=== PATIENT | male | born 1995 | race Caucasian/White ===

== ENCOUNTER 2025-02-27 00:22 | Emergency (ER) | payer OTHER ==
[~2025-02-27] VITALS: Ht 182.9 cm; Wt 81.6 kg
[2025-02-27 00:23] VITALS: TEMP 97.2
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
[2025-02-27 03:28] VITALS: BP 117/84; PULSE 59; RESP 18; O2SAT 100
--- NOTE | 2025-02-27 03:29 | NUR ---
RIGHT UPPER LIP LACERATION CLEANED WITH NORMAL SALINE, DRIED, DERMABOND APPLIED WITH ONE STERISTRIP, PATIENT TOLERATED WELL.
[2025-02-27] MEDS ORDERED: DICL500C PO (03:30)
[2025-02-27] MEDS: OCTYL 2-CYANOACRYLATE 1 EACH TP ONE (03:36)
== END 2025-02-27 03:56 ==
LOC: EDH 00:22 → EEVIPCON 00:22 → EDH 03:56
DX: S01.511A Laceration without foreign body of lip, initial encounter (principal); Y04.0XXA Assault by unarmed brawl or fight, initial encounter; Y93.89 Activity, other specified; Y92.89 Other specified places as the place of occurrence of the external cause; Y99.8 Other external cause status
CPT/HCPCS: 12011; 90471; 90714; 99283